=== PATIENT | female | born 1975 | race Caucasian/White ===

== ENCOUNTER 2021-07-23 06:40 | Inpatient (IN) | payer BC ==
[2021-07-23] MEDS ORDERED: Lactated Ringers 1,000 ML IV SCH (07:15)
[2021-07-23] MEDS ORDERED: Scopolamine 1.5 MG Transdermal Patch ONE (07:18)
[2021-07-23] MEDS ORDERED: Lidocaine 2% 5 ML SDV ONE (07:24)
[2021-07-23] MEDS ORDERED: Rocuronium Bromide 50 MG/5 ML Syringe ONE ×2 (07:24→09:11)
[2021-07-23] MEDS ORDERED: Dexmedetomidine 200 MCG/2 ML SDV ONE (07:24)
[2021-07-23] MEDS ORDERED: Dexamethasone 4 MG/ML 5 ML MDV ONE (07:24)
[2021-07-23] MEDS ORDERED: Propofol 200 MG/20 ML SDV ONE ×3 (07:24→09:56)
[2021-07-23] MEDS ORDERED: Esmolol 100 MG/10 ML SDV ONE (07:25)
[2021-07-23] MEDS ORDERED: fentaNYL 100 MCG/2 ML SDV ONE (07:25)
[2021-07-23] MEDS ORDERED: Water For Injection, Sterile 20 ML ONE (07:25)
[2021-07-23] MEDS ORDERED: Midazolam 1 MG/ML 2 ML SDV ONE (07:25)
[2021-07-23] MEDS ORDERED: Octyl 2-Cyanoacrylate 1 Tube ONE (07:37)
[2021-07-23] MEDS ORDERED: Fluorescein 5 ML Vial ONE (07:37)
[2021-07-23] MEDS ORDERED: Bupivacaine 0.25% 10 ML SDV ONE (07:37)
[2021-07-23] MEDS ORDERED: Methylene Blue 50 MG/10 ML Ampule ONE (07:37)
[2021-07-23] MEDS ORDERED: Metoclopramide 10 MG/2 ML SDV IVPUSH PRN (07:44)
[2021-07-23] MEDS ORDERED: Naloxone 0.4 MG/ML SDV IVPUSH PRN ×2 (07:44→11:10)
[2021-07-23] MEDS ORDERED: HYDROmorphone 1 MG/ML Syringe IVPUSH PRN (07:44)
[2021-07-23] MEDS ORDERED: Morphine 4 MG/ML VIAL IVPUSH PRN (07:44)
[2021-07-23] MEDS ORDERED: Ondansetron 4 MG/2 ML SDV IVPUSH PRN ×3 (07:44→11:10)
[2021-07-23] MEDS ORDERED: Albuterol 0.083% 2.5 MG/3 ML Neb Soln NEB PRN (07:44)
--- NOTE | 2021-07-23 07:53 | PCM.PREANE ---
Preanesthetic Assessment - Anesthesia/Transfusion/Family Hx Anesthesia History: Prior Anesthesia Without Reaction Transfusion History: No Prior Transfusion(s) - Review of Systems General: No Symptoms Pulmonary: No Symptoms Cardiovascular: No Symptoms Gastrointestinal: No Symptoms Neurological: No Symptoms Other: Reports: None - Physical Assessment NPO Status Date: 07/23/21 NPO Status Time: 00:00 Vital Signs: Last Vital Signs Temp 98.1 F 07/23/21 07:02 Pulse 66 07/23/21 07:02 Resp 14 07/23/21 07:02 BP 123/62 07/23/21 07:02 Pulse Ox 97 07/23/21 07:02 Height: 5 ft 4 in Weight: 221 lb ASA Class: 2 Mental Status: Alert & Oriented x3 Airway Class: Mallampati = 2 Dentition: Reports: Normal Dentition Thyro-Mental Finger Breadths: 3 Mouth Opening Finger Breadths: 3 ROM/Head Extension: Full Lungs: Clear to Auscultation, Normal Respiratory Effort Cardiovascular: Regular Rate, Regular Rhythm - Lab Values: Laboratory Last Values Hgb 12.9 g/dL (12.0-16.0) 07/20/21 08:25 Hct 39.0 % (36.0-46.0) 07/20/21 08:25 HCG, Qual NEGATIVE (NEG) 07/20/21 08:25 - Allergies Allergies/Adverse Reactions: Allergies Allergy/AdvReac Type Severity Reaction Status Date / Time animal dander Allergy itchy/dry Verified 07/23/21 07:20 eyes ciprofloxacin [From Cipro] Allergy swelling/ra Verified 07/23/21 07:20 sh gluten Allergy Stomach Verified 07/23/21 07:20 Upset mold Allergy itchy/dry Verified 07/23/21 07:20 eyes morphine Allergy Rash Verified 07/23/21 07:20 shellfish derived Allergy Anaphylactic Verified 07/23/21 07:20 Shock soy Allergy Hives Verified 07/23/21 07:20 venom-honey bee Allergy Anaphylactic Verified 07/23/21 07:20 Shock venom-wasp Allergy Anaphylactic Verified 07/23/21 07:20 Shock wheat Allergy Hives Verified 07/23/21 07:20 sugar beets Allergy itch/dry Uncoded 07/23/21 07:21 eyes weeds/corn/alfalfa/trees Allergy itchy/dry Uncoded 07/23/21 07:21 eyes - Acknowledgements Anesthesia Type Planned: General Anesthesia Pt an Appropriate Candidate for the Planned Anesthesia: Yes Alternatives and Risks of Anesthesia Discussed w Pt/Guardian: Yes Pt/Guardian Understands and Agrees with Anesthesia Plan: Yes PreAnesthesia Questionnaire HEENT History: Reports: Other (See Below) Other HEENT History: glasses/contacts Cardiovascular History: Reports: None Respiratory History: Reports: None Gastrointestinal History: Reports: Other (See Below) Other Gastrointestinal History: diverticulitis Genitourinary History: Reports: Renal Calculus [employer] History: Reports: Musculoskeletal History: Reports: Fracture Other Musculoskeletal History: hx fx left ulna, hx fx right wrist Neurological History: Reports: None Psychiatric History: Reports: None Endocrine/Metabolic History: Reports: Obesity/BMI 30+ Hematologic History: Reports: None Immunologic History: Reports: None Oncologic (Cancer) History: Reports: None Dermatologic History: Reports: Psoriasis - Past Surgical History Head Surgeries/Procedures: Reports: None HEENT Surgical History: Reports: None Cardiovascular Surgical History: Reports: None Respiratory Surgical History: Reports: None GI Surgical History: Reports: Cholecystectomy, Colonoscopy Female Surgical History: Reports: Other (See Below) Other Female Surgeries/Procedures: A&P repair, enterocele repair, TOVT Endocrine Surgical History: Reports: None Neurological Surgical History: Reports: None Musculoskeletal Surgical History: Reports: ORIF Other Musculoskeletal Surgeries/Procedures:: surgery to left arm x2 Oncologic Surgical History: Reports: None Dermatological Surgical History: Reports: None - SUBSTANCE USE Tobacco Use Status *Q: Never Tobacco User - HOME MEDS Home Medications: Home Meds Cholecalciferol (Vitamin D3) [Vitamin D3] 5,000 units PO DAILY 12/13/20 [History] Cranberry Fruit Extract [Cranberry] 100 mg PO DAILY 12/13/20 [History] Cyanocobalamin (Vitamin B12) [Vitamin B12] 1,000 mcg PO DAILY 12/13/20 [History] Magnesium Oxide [Magnesium] 500 mg PO DAILY 12/13/20 [History] Multivitamin 1 tab PO DAILY 12/13/20 [History] diphenhydrAMINE [Benadryl] 10 ml PO ASDIRECTED PRN 12/13/20 [History] EPINEPHrine [Epipen 2-Efrain] 1 injection SUBCUT ASDIRECTED PRN 12/14/20 [History] Progesterone,Micronized [Prometrium] 200 mg PO BEDTIME 12/14/20 [History] estradioL [Estradiol] 2.5 mg TOP BEDTIME 12/14/20 [History] - CURRENT (IN HOUSE) MEDS Current Meds: Current Medications Albuterol (Albuterol 0.083% 2.5 Mg/3 Ml Neb Soln) 2.5 mg NEB ONETIME PRN PRN Reason: Wheezing Droperidol (Droperidol 5 Mg/2 Ml Sdv) 0.625 mg IVPUSH ONETIME PRN PRN Reason: Nausea/Vomiting Fentanyl (Fentanyl 100 Mcg/2 Ml Sdv) 50 mcg IVPUSH Q5M PRN PRN Reason: Pain (mild 1-3) Hydromorphone HCl (Hydromorphone 1 Mg/Ml Syringe) 1 mg IVPUSH Q10M PRN PRN Reason: Pain (moderate 4-6) Lactated Ringer's (Ringers, Lactated) 1,000 mls @ 125 mls/hr IV ASDIRECTED JONY Last Admin: 07/23/21 07:28 Dose: 125 mls/hr Documented by: Metoclopramide HCl (Metoclopramide 10 Mg/2 Ml Sdv) 10 mg IVPUSH ONETIME PRN PRN Reason: Nausea/Vomiting Morphine Sulfate (Morphine 4 Mg/Ml Vial) 2 mg IVPUSH Q10M PRN PRN Reason: Pain (severe 7-10) Naloxone HCl (Naloxone 0.4 Mg/Ml Sdv) 0.1 mg IVPUSH ASDIRECTED PRN PRN Reason: Respiratory Depression Ondansetron HCl (Ondansetron 4 Mg/2 Ml Sdv) 4 mg IVPUSH ONETIME PRN PRN Reason: Nausea/Vomiting Discontinued Medications Bupivacaine HCl (Bupivacaine 0.25% 10 Ml Sdv) Confirm Administered Dose 20 ml .ROUTE .STK-MED ONE Stop: 07/23/21 07:38 Dexamethasone (Dexamethasone 4 Mg/Ml 5 Ml Mdv) Confirm Administered Dose 20 mg .ROUTE .STK-MED ONE Stop: 07/23/21 07:25 Dexmedetomidine HCl (Dexmedetomidine 200 Mcg/2 Ml Sdv) Confirm Administered Dose 200 mcg .ROUTE .STK-MED ONE Stop: 07/23/21 07:25 Esmolol HCl (Esmolol 100 Mg/10 Ml Sdv) Confirm Administered Dose 100 mg .ROUTE .STK-MED ONE Stop: 07/23/21 07:26 Fentanyl (Fentanyl 100 Mcg/2 Ml Sdv) Confirm Administered Dose 100 mcg .ROUTE .STK-MED ONE Stop: 07/23/21 07:26 Fluorescein Sodium (Fluorescein 5 Ml Vial) Confirm Administered Dose 5 ml .ROUTE .STK-MED ONE Stop: 07/23/21 07:38 Sterile Water (Sterile Water For Injection) Confirm Administered Dose 20 mls @ as directed .ROUTE .ST-MED ONE Stop: 07/23/21 07:26 Lidocaine (Lidocaine 2% 5 Ml Sdv) Confirm Administered Dose 5 ml .ROUTE .STK-MED ONE Stop: 07/23/21 07:25 Methylene Blue (Methylene Blue 50 Mg/10 Ml Ampule) Confirm Administered Dose 50 mg .ROUTE .ST-MED ONE Stop: 07/23/21 07:38 Midazolam HCl (Midazolam 1 Mg/Ml 2 Ml Sdv) Confirm Administered Dose 2 mg .ROUTE .ST-MED ONE Stop: 07/23/21 07:26 Octyl Cyanoacrylate (Octyl 2-Cyanoacrylate 1 Tube) Confirm Administered Dose 1 applic .ROUTE .ST-MED ONE Stop: 07/23/21 07:38 Propofol (Propofol 200 Mg/20 Ml Sdv) Confirm Administered Dose 200 mg .ROUTE .ST-MED ONE Stop: 07/23/21 07:25 Rocuronium Fernley (Rocuronium Fernley 50 Mg/5 Ml Syringe) Confirm Administered Dose 50 mg .ROUTE .ST-MED ONE Stop: 07/23/21 07:25 Scopolamine (Scopolamine 1.5 Mg Transdermal Patch) Confirm Administered Dose 1.5 mg .ROUTE .ST-MED ONE Stop: 07/23/21 07:19 Last Admin: 07/23/21 07:25 Dose: 1.5 mg Documented by:
--- NOTE | 2021-07-23 08:50 | PCM.OPNOTE ---
- General Post-Op/Procedure Note Date of Surgery/Procedure: 07/23/21 Operative Procedure(s): Exploration of the abdomen and closure of retroperitoneum Pre Op Diagnosis: Per Dr. Christie Post-Op Diagnosis: Intraoperative bleeding. Retroperitoneal tear. Anesthesia Technique: General ET Tube (ASA II) Primary Surgeon: Jad Correa Condition: Good Free Text/Narrative:: I was called for intraoperative consultation. At the time of the laparoscopic assisted vaginal hysterectomy. The consult was called for bleeding after the Veress needle had been inserted. Laparotomy incision had already been made by Dr. Christie. No significant amount of blood was noted in the pelvis at the time, although there was a rent in the retroperitoneum. This was repaired with interrupted 3-0 Vicryl suture. No other source for bleeding was noted. I completed my portion of the procedure, closing the retroperitoneum and then turned the case back over to Dr. Christie & Dr. Ludwig. They will dictate the remainder of the operative procedure.
[2021-07-23] MEDS ORDERED: Furosemide 40 MG/4 ML VIAL ONE (09:12)
[2021-07-23] MEDS ORDERED: ePHEDrine 50 MG/ML SDV ONE ×3 (09:14→09:16)
[2021-07-23] MEDS ORDERED: Sugammadex Sodium 200 MG/2 ML VIAL ONE (09:23)
[2021-07-23] MEDS ORDERED: Ondansetron 4 MG/2 ML SDV ONE (09:23)
[2021-07-23] MEDS ORDERED: Ketorolac 30 MG/ML SDV ONE (09:23)
--- NOTE | 2021-07-23 10:56 | PCM48HPAN ---
Post Anesthesia Note - EVALUATION WITHIN 48HRS OF ANESTHETIC Vital Signs in Normal Range: Yes Patient Participated in Evaluation: Yes Respiratory Function Stable: Yes Airway Patent: Yes Cardiovascular Function Stable: Yes Hydration Status Stable: Yes Pain Control Satisfactory: Yes Nausea and Vomiting Control Satisfactory: Yes Mental Status Recovered: Yes Vital Signs: Last Vital Signs Temp 98.1 F 07/23/21 07:02 Pulse 66 07/23/21 07:02 Resp 14 07/23/21 07:02 BP 123/62 07/23/21 07:02 Pulse Ox 97 07/23/21 07:02
--- NOTE | 2021-07-23 10:56 | PCM.POSTAN ---
POST ANESTHESIA ASSESSMENT - MENTAL STATUS Mental Status: Alert, Oriented - VITAL SIGNS Vital Signs: Last Vital Signs Temp 98.1 F 07/23/21 07:02 Pulse 66 07/23/21 07:02 Resp 14 07/23/21 07:02 BP 123/62 07/23/21 07:02 Pulse Ox 97 07/23/21 07:02 - RESPIRATORY Respiratory Status: Respiratory Rate WNL, Airway Patent, O2 Saturation Stable - CARDIOVASCULAR CV Status: Pulse Rate WNL, Blood Pressure Stable - GASTROINTESTINAL GI Status: No Symptoms - POST OP HYDRATION Hydration Status: Adequate & Stable
--- NOTE | 2021-07-23 10:59 | PCM.OPNOTE ---
- General Post-Op/Procedure Note Date of Surgery/Procedure: 07/23/21 Operative Procedure(s): total abdominal hysterectomy with bilateral salpingoophorectomy, lysis of adhesions and cystoscopy, intraoperative general surgery consultation. Findings: Normal appearing uterus, bilateral ovaries adherent to the medial leaf of the broad ligament, posterior peritoneal defect approximately 5 cm in length. Cystoscopy showed no trauma to the bladder mucosa, copious flow of urine from bilateral ureteral orifices. Pre Op Diagnosis: postmenopausal bleeding Post-Op Diagnosis: Same Anesthesia Technique: General ET Tube Primary Surgeon: Myesha Christie Secondary Surgeon: Jane Ludwig Anesthesia Provider: Stuart Melendez Pathology: Uterus and bilateral fallopian tubes and ovaries. Fluid Replacement, Intraop: 1,900 EBL in mLs: 300 Complications: None known Condition: Good
[2021-07-23] MEDS ORDERED: Acetaminophen/oxyCODONE 325-5 MG Tab PO PRN ×2 (11:03)
[2021-07-23] MEDS ORDERED: Promethazine 25 MG/ML SDV IM PRN (11:03)
[2021-07-23] MEDS: fentaNYL 100 MCG/2 ML SDV IVPUSH PRN ×2 (11:06→11:15)
[2021-07-23] MEDS ORDERED: diphenhydrAMINE 25 MG Cap PO PRN (11:10)
[2021-07-23] MEDS ORDERED: HYDROmorphone/Normal Saline 10 MG/50 ML PCA IV PRN (11:10)
[2021-07-23] MEDS ORDERED: diphenhydrAMINE 50 MG/ML SDV IVPUSH PRN (11:10)
--- NOTE | 2021-07-23 11:21 | OR ---
SURGEON: Jad Correa M.D. DATE OF PROCEDURE: 07/23/2021 Intraoperative consultation and operative note. OPERATION PERFORMED: Exploration of abdomen and closure of retroperitoneal defect. DESCRIPTION OF PROCEDURE AND CONSULTATION: I was called to the operating room by Dr. Christie for intraoperative consultation for bleeding after the Veress needle had been inserted. Laparotomy incision had already been made by Dr. Christie for further evaluation of the bleeding. Per Dr. Christie, there was no significant bleeding when the laparotomy incision was made; however, there was noted to be a retroperitoneal tear, and I was asked to evaluate this. I did scrub in for surgery, and exploration did reveal a tear in the retroperitoneum with exposed iliac artery, although no significant bleeding was noted of either a venous or arterial etiology. The retroperitoneal tear did extend a little bit. It was felt that we should not explore this too much further to create further injury. Therefore, the retroperitoneum was loosely reapproximated with interrupted 3-0 Vicryl. This was done to try and prevent a bowel obstruction or herniation. With no further bleeding noted, I did scrub out and return the case to the care of Dr. Christie and Dr. Ludwig who will dictate their portion of the procedure. [id number] / [id number] /[id number]
[2021-07-23] MEDS: Lactated Ringers 1,000 ML IV SCH ×3 (12:45→23:31)
--- NOTE | 2021-07-23 16:04 | PCM.SURGPN ---
- General Info Date of Service: 07/23/21 Date of Surgery/Procedure: 07/23/21 POD#: 0 Post-Op Diagnosis: postmenopausal bleeding Functional Status: Reports: Pain Controlled (feeling gas pain only), Tolerating Diet. Denies: Urinating (catheter in place) - Review of Systems General: Reports: No Symptoms HEENT: Reports: No Symptoms Pulmonary: Reports: No Symptoms Cardiovascular: Reports: No Symptoms Gastrointestinal: Reports: No Symptoms Genitourinary: Reports: No Symptoms Musculoskeletal: Reports: No Symptoms Skin: Reports: No Symptoms Neurological: Reports: No Symptoms Psychiatric: Reports: No Symptoms - Patient Data Vitals - Most Recent: Last Vital Signs Temp 36.3 C 07/23/21 14:45 Pulse 75 07/23/21 14:45 Resp 18 07/23/21 14:45 BP 125/64 07/23/21 14:45 Pulse Ox 98 07/23/21 14:45 Weight - Most Recent: 100.244 kg I&O - Last 24 Hours: Intake & Output 07/23/21 07/23/21 07/23/21 06:59 14:59 22:59 Intake Total 4050 Output Total 650 Balance 3400 Lab Results Last 24 Hrs: Laboratory Results - last 24 hr 07/23/21 07/23/21 Range/Units 07:14 14:47 WBC 21.58 H (4.0-11.0) K/uL RBC 4.50 (4.30-5.90) M/uL Hgb 12.9 (12.0-16.0) g/dL Hct 39.0 (36.0-46.0) % MCV 86.7 (80.0-98.0) fL MCH 28.7 (27.0-32.0) pg MCHC 33.1 (31.0-37.0) g/dL RDW Std Deviation 45.7 (28.0-62.0) fl RDW Coeff of Rocky 14 (11.0-15.0) % Plt Count 361 (150-400) K/uL MPV 9.20 (7.40-12.00) fL Nucleated RBC % 0.0 /100WBC Nucleated RBCs # 0 K/uL Blood Type A NEGATIVE Antibody Screen NEGATIVE Med Orders - Current: Current Medications Diphenhydramine HCl (Diphenhydramine 50 Mg/Ml Sdv) 25 mg IVPUSH Q6H PRN PRN Reason: Itching Diphenhydramine HCl (Diphenhydramine 25 Mg Cap) 25 mg PO Q6H PRN PRN Reason: Itching Hydromorphone HCl (Hydromorphone/Normal Saline 10 Mg/50 Ml Hub Bander) 0 mg IV ASDIRECTED PRN; Protocol PRN Reason: Abdominal Pain Last Admin: 07/23/21 13:00 Dose: 10 mg Documented by: Lactated Ringer's (Ringers, Lactated) 1,000 mls @ 125 mls/hr IV ASDIRECTED JONY Last Admin: 07/23/21 12:45 Dose: 125 mls/hr Documented by: Naloxone HCl (Naloxone 0.4 Mg/Ml Sdv) 0.4 mg IVPUSH Q3M PRN PRN Reason: Respiratory Depression Ondansetron HCl (Ondansetron 4 Mg/2 Ml Sdv) 4 mg IVPUSH Q6H PRN PRN Reason: Nausea/Vomiting Ondansetron HCl (Ondansetron 4 Mg/2 Ml Sdv) 4 mg IVPUSH Q6H PRN PRN Reason: Nausea/Vomiting Oxycodone/Acetaminophen (Acetaminophen/Oxycodone 325-5 Mg Tab) 1 tab PO Q4H PRN PRN Reason: Pain (moderate 4-6) Oxycodone/Acetaminophen (Acetaminophen/Oxycodone 325-5 Mg Tab) 2 tab PO Q4H PRN PRN Reason: Pain (moderate 4-6) Estradiol 42.5 Gm (Cream.Appl) 2.5 each TOP BEDTIME JONY Promethazine HCl (Promethazine 25 Mg/Ml Sdv) 25 mg IM Q6H PRN PRN Reason: Nausea/Vomiting Simethicone (Simethicone 80 Mg Tab.Chew) 80 mg PO Q4H PRN PRN Reason: Abdominal Pain Discontinued Medications Albuterol (Albuterol 0.083% 2.5 Mg/3 Ml Neb Soln) 2.5 mg NEB ONETIME PRN PRN Reason: Wheezing Bupivacaine HCl (Bupivacaine 0.25% 10 Ml Sdv) Confirm Administered Dose 20 ml .ROUTE .STK-MED ONE Stop: 07/23/21 07:38 Dexamethasone (Dexamethasone 4 Mg/Ml 5 Ml Mdv) Confirm Administered Dose 20 mg .ROUTE .STK-MED ONE Stop: 07/23/21 07:25 Dexmedetomidine HCl (Dexmedetomidine 200 Mcg/2 Ml Sdv) Confirm Administered Dose 200 mcg .ROUTE .STK-MED ONE Stop: 07/23/21 07:25 Droperidol (Droperidol 5 Mg/2 Ml Sdv) 0.625 mg IVPUSH ONETIME PRN PRN Reason: Nausea/Vomiting Ephedrine Sulfate (Ephedrine 50 Mg/Ml Sdv) Confirm Administered Dose 50 mg .ROUTE .STK-MED ONE Stop: 07/23/21 09:15 Ephedrine Sulfate (Ephedrine 50 Mg/Ml Sdv) Confirm Administered Dose 50 mg .ROUTE .STK-MED ONE Stop: 07/23/21 09:15 Ephedrine Sulfate (Ephedrine 50 Mg/Ml Sdv) Confirm Administered Dose 50 mg .ROUTE .STK-MED ONE Stop: 07/23/21 09:17 Esmolol HCl (Esmolol 100 Mg/10 Ml Sdv) Confirm Administered Dose 100 mg .ROUTE .STK-MED ONE Stop: 07/23/21 07:26 Fentanyl (Fentanyl 100 Mcg/2 Ml Sdv) Confirm Administered Dose 100 mcg .ROUTE .STK-MED ONE Stop: 07/23/21 07:26 Fentanyl (Fentanyl 100 Mcg/2 Ml Sdv) 50 mcg IVPUSH Q5M PRN PRN Reason: Pain (mild 1-3) Last Admin: 07/23/21 11:15 Dose: 50 mcg Documented by: Fluorescein Sodium (Fluorescein 5 Ml Vial) Confirm Administered Dose 5 ml .ROUTE .STK-MED ONE Stop: 07/23/21 07:38 Furosemide (Furosemide 40 Mg/4 Ml Vial) Confirm Administered Dose 40 mg .ROUTE .STK-MED ONE Stop: 07/23/21 09:13 Hydromorphone HCl (Hydromorphone 1 Mg/Ml Syringe) 1 mg IVPUSH Q10M PRN PRN Reason: Pain (moderate 4-6) Lactated Ringer's (Ringers, Lactated) 1,000 mls @ 125 mls/hr IV ASDIRECTED JONY Last Admin: 07/23/21 07:28 Dose: 125 mls/hr Documented by: Sterile Water (Sterile Water For Injection) Confirm Administered Dose 20 mls @ as directed .ROUTE .STK-MED ONE Stop: 07/23/21 07:26 Cefazolin Sodium/Dextrose (Ancef) Confirm Administered Dose 50 mls @ as directed .ROUTE .STK-MED ONE Stop: 07/23/21 08:09 Acetaminophen (Ofirmev 1000 Mg/100 Ml) Confirm Administered Dose 100 mls @ as directed .ROUTE .STK-MED ONE Stop: 07/23/21 09:35 Ketorolac Tromethamine (Ketorolac 30 Mg/Ml Sdv) Confirm Administered Dose 0 mg .ROUTE .STK-MED ONE Stop: 07/23/21 09:24 Lidocaine (Lidocaine 2% 5 Ml Sdv) Confirm Administered Dose 5 ml .ROUTE .STK-MED ONE Stop: 07/23/21 07:25 Methylene Blue (Methylene Blue 50 Mg/10 Ml Ampule) Confirm Administered Dose 50 mg .ROUTE .STK-MED ONE Stop: 07/23/21 07:38 Metoclopramide HCl (Metoclopramide 10 Mg/2 Ml Sdv) 10 mg IVPUSH ONETIME PRN PRN Reason: Nausea/Vomiting Midazolam HCl (Midazolam 1 Mg/Ml 2 Ml Sdv) Confirm Administered Dose 2 mg .ROUTE .STK-MED ONE Stop: 07/23/21 07:26 Morphine Sulfate (Morphine 4 Mg/Ml Vial) 2 mg IVPUSH Q10M PRN PRN Reason: Pain (severe 7-10) Naloxone HCl (Naloxone 0.4 Mg/Ml Sdv) 0.1 mg IVPUSH ASDIRECTED PRN PRN Reason: Respiratory Depression Octyl Cyanoacrylate (Octyl 2-Cyanoacrylate 1 Tube) Confirm Administered Dose 1 applic .ROUTE .STK-MED ONE Stop: 07/23/21 07:38 Ondansetron HCl (Ondansetron 4 Mg/2 Ml Sdv) 4 mg IVPUSH ONETIME PRN PRN Reason: Nausea/Vomiting Ondansetron HCl (Ondansetron 4 Mg/2 Ml Sdv) Confirm Administered Dose 4 mg .ROUTE .STK-MED ONE Stop: 07/23/21 09:24 Propofol (Propofol 200 Mg/20 Ml Sdv) Confirm Administered Dose 200 mg .ROUTE .STK-MED ONE Stop: 07/23/21 07:25 Propofol (Propofol 200 Mg/20 Ml Sdv) Confirm Administered Dose 200 mg .ROUTE .STK-MED ONE Stop: 07/23/21 08:40 Propofol (Propofol 200 Mg/20 Ml Sdv) Confirm Administered Dose 200 mg .ROUTE .STK-MED ONE Stop: 07/23/21 09:57 Rocuronium [place] (Rocuronium [place] 50 Mg/5 Ml Syringe) Confirm Administered Dose 50 mg .ROUTE .STK-MED ONE Stop: 07/23/21 07:25 Rocuronium [place] (Rocuronium [place] 50 Mg/5 Ml Syringe) Confirm Administered Dose 50 mg .ROUTE .STK-MED ONE Stop: 07/23/21 09:12 Scopolamine (Scopolamine 1.5 Mg Transdermal Patch) Confirm Administered Dose 1.5 mg .ROUTE .STK-MED ONE Stop: 07/23/21 07:19 Last Admin: 07/23/21 07:25 Dose: 1.5 mg Documented by: Sugammadex Sodium (Sugammadex Sodium 200 Mg/2 Ml Vial) Confirm Administered Dose 200 mg .ROUTE .STK-MED ONE Stop: 07/23/21 09:24 - Exam Wound/Incisions: Dressing Dry and Intact General: Alert, Oriented Lungs: Normal Respiratory Effort GI/Abdominal Exam: Soft, Non-Tender Sepsis Event Note - Evaluation Sepsis Screening Result: No Definite Risk - Focused Exam Vital Signs: Vital Signs Temp Pulse Resp BP Pulse Ox Pulse Ox 07/23/21 14:45 36.3 C 75 18 125/64 98 07/23/21 13:45 36.1 C 71 20 123/76 98 07/23/21 13:15 36.1 C 70 20 120/72 99 07/23/21 12:45 36.1 C 73 18 119/66 99 07/23/21 12:30 35.9 C L 69 20 119/64 100 07/23/21 12:15 36.1 C 70 16 121/68 100 07/23/21 12:00 36.6 C 72 16 116/66 99 07/23/21 11:45 35.6 C L 72 14 111/61 99 99 07/23/21 11:30 75 13 109/63 96 07/23/21 11:25 73 16 115/66 95 07/23/21 11:20 72 18 108/66 95 07/23/21 11:15 73 15 112/64 96 07/23/21 11:10 71 13 113/67 95 07/23/21 11:05 69 11 L 113/69 98 07/23/21 11:00 74 17 113/71 99 07/23/21 10:55 75 14 113/70 98 07/23/21 10:50 36 C L 75 15 110/71 97 07/23/21 07:02 36.7 C 66 14 123/62 97 - Problem List & Annotations (1) Postmenopausal bleeding SNOMED Code(s): 75983866 Code(s): N95.0 - POSTMENOPAUSAL BLEEDING Status: Acute Current Visit: Yes - Problem List Review Problem List Initiated/Reviewed/Updated: Yes - My Orders Last 24 Hours: Active Orders 24 hr Category Date Time Status Patient Status [ADT] Routine ADT 07/23/21 11:03 Active Antiembolic Devices [RC] PER UNIT ROUTINE Care 07/23/21 11:04 Active Communication Order [RC] PER UNIT ROUTINE Care 07/23/21 11:11 Active Notify Provider Intake and Out [RC] ASDIRECTED Care 07/23/21 11:03 Active Notify Provider Vital Signs [RC] ASDIRECTED Care 07/23/21 11:03 Active Oxygen Therapy [RC] ASDIRECTED Care 07/23/21 11:03 Active COORDINATE MEASURING MACHINE TECHNICIAN Record [RC] Q4H Care 07/23/21 11:11 Active Pulse Oximetry [RC] PER UNIT ROUTINE Care 07/23/21 11:05 Active RT Incentive Spirometry [RC] Q2HWA Care 07/23/21 11:03 Active Up With Assistance [RC] PER UNIT ROUTINE Care 07/23/21 11:03 Active Up ad Jade [RC] PER UNIT ROUTINE Care 07/23/21 11:03 Active Urinary Catheter Removal [RC] Per Unit Routine Care 07/23/21 11:03 Active Vital Signs [RC] PER UNIT ROUTINE Care 07/23/21 11:03 Active Advance Diet Instructions [DIET] Diet 07/23/21 Lunch Active BASIC METABOLIC PANEL,BMP [CHEM] AM Lab 07/24/21 05:11 Ordered CBC WITH AUTO DIFF [HEME] AM Lab 07/24/21 05:11 Ordered Acetaminophen/oxyCODONE [Percocet 325-5 MG] Med 07/23/21 11:03 Active 1 tab PO Q4H PRN Acetaminophen/oxyCODONE [Percocet 325-5 MG] Med 07/23/21 11:03 Active 2 tab PO Q4H PRN HYDROmorphone/Normal Saline [Dilaudid COORDINATE MEASURING MACHINE TECHNICIAN 10 MG in NS Med 07/23/21 11:10 Active 50 ML] 0 mg IV ASDIRECTED PRN Ketorolac [Toradol] Med 07/23/21 16:00 Ordered 30 mg IVPUSH Q6H Lactated Ringers [Ringers, Lactated] 1,000 ml Med 07/23/21 11:15 Active IV ASDIRECTED Naloxone [Narcan] Med 07/23/21 11:10 Active 0.4 mg IVPUSH Q3M PRN Ondansetron [Zofran] Med 07/23/21 11:03 Active 4 mg IVPUSH Q6H PRN Ondansetron [Zofran] Med 07/23/21 11:10 Active 4 mg IVPUSH Q6H PRN Patient's Own Medication [Ptom] Med 07/23/21 21:00 Active 2.5 each TOP BEDTIME Promethazine [Phenergan] Med 07/23/21 11:03 Active 25 mg IM Q6H PRN Simethicone Med 07/23/21 15:58 Ordered 80 mg PO Q4H PRN diphenhydrAMINE [Benadryl] Med 07/23/21 11:10 Active 25 mg IVPUSH Q6H PRN diphenhydrAMINE [Benadryl] Med 07/23/21 11:10 Active 25 mg PO Q6H PRN Abdominal Binder [OM.PC] Per Unit Routine Oth 07/23/21 11:05 Ordered May Take Own Home Medications [OM.PC] Per Unit Routine Oth 07/23/21 11:05 Ordered Peripheral IV Discontinue [OM.PC] Routine Oth 07/23/21 11:03 Ordered Pulse Oximetry Continuous Monitoring [OM.PC] Routine Oth 07/23/21 07:44 Ordered Pulse Oximetry Continuous Monitoring [OM.PC] Routine Oth 07/23/21 11:11 Ordered Sequential Compression Device [OM.PC] Per Unit Routine Oth 07/23/21 11:03 Ordered Resuscitation Status Routine Resus Stat 07/23/21 11:03 Ordered Medication Orders Diphenhydramine HCl (Diphenhydramine 50 Mg/Ml Sdv) 25 mg IVPUSH Q6H PRN PRN Reason: Itching Diphenhydramine HCl (Diphenhydramine 25 Mg Cap) 25 mg PO Q6H PRN PRN Reason: Itching Hydromorphone HCl (Hydromorphone/Normal Saline 10 Mg/50 Ml Hub Bander) 0 mg IV ASDIRECTED PRN; Protocol PRN Reason: Abdominal Pain Last Admin: 07/23/21 13:00 Dose: 10 mg Documented by: JUAN LUIS Lactated Ringer's (Ringers, Lactated) 1,000 mls @ 125 mls/hr IV ASDIRECTED JONY Last Admin: 07/23/21 12:45 Dose: 125 mls/hr Documented by: JUAN LUIS Naloxone HCl (Naloxone 0.4 Mg/Ml Sdv) 0.4 mg IVPUSH Q3M PRN PRN Reason: Respiratory Depression Ondansetron HCl (Ondansetron 4 Mg/2 Ml Sdv) 4 mg IVPUSH Q6H PRN PRN Reason: Nausea/Vomiting Ondansetron HCl (Ondansetron 4 Mg/2 Ml Sdv) 4 mg IVPUSH Q6H PRN PRN Reason: Nausea/Vomiting Oxycodone/Acetaminophen (Acetaminophen/Oxycodone 325-5 Mg Tab) 1 tab PO Q4H PRN PRN Reason: Pain (moderate 4-6) Oxycodone/Acetaminophen (Acetaminophen/Oxycodone 325-5 Mg Tab) 2 tab PO Q4H PRN PRN Reason: Pain (moderate 4-6) Estradiol 42.5 Gm (Cream.Appl) 2.5 each TOP BEDTIME JONY Promethazine HCl (Promethazine 25 Mg/Ml Sdv) 25 mg IM Q6H PRN PRN Reason: Nausea/Vomiting Simethicone (Simethicone 80 Mg Tab.Chew) 80 mg PO Q4H PRN PRN Reason: Abdominal Pain - Assessment Assessment (Free Text/Narrative):: POD0 after CONCETTA/BSO, for postmenopausal bleeding, with findings of pelvic adhesions, open approach due to blood noted on placement of Veress needle. - Plan Plan (Free Text/Narrative):: Reviewed operative findings, and reason for pfannenstiel incision. Start GasX due to gas pain. Hemoglobin is stable relative to preop, therefore will start Ketorolac. Continue Dilaudid COORDINATE MEASURING MACHINE TECHNICIAN. In am will start oral pain medications, catheter out and encourage ambulation. Continue SCD for DVT prophylaxis at this time.
[2021-07-23] MEDS: Ketorolac 30 MG/ML SDV IVPUSH SCH ×2 (17:30→23:29)
--- NOTE | 2021-07-23 19:20 | OR ---
SURGEON: Myesha Christie M.D. DATE OF PROCEDURE: 07/23/2021 PREOPERATIVE DIAGNOSIS: Postmenopausal bleeding. POSTOPERATIVE DIAGNOSIS: Postmenopausal bleeding. PROCEDURES: Total abdominal hysterectomy, bilateral salpingo-oophorectomy, cystoscopy, intraoperative General Surgery consultation. PRIMARY SURGEON: Myesha Christie M.D. PRESIDENT EDUCATIONAL INSTITUTION: [facility] MD. CONSULTING PHYSICIAN: Jad Correa M.D. ANESTHESIA: General endotracheal. ESTIMATED BLOOD LOSS: 300 mL. FLUIDS: 1900 mL crystalloid. FINDINGS: Bilateral ovaries were adherent to medial leaf of the broad ligament. The tip of the appendix was adherent to the pelvic peritoneum. There was a defect in the posterior peritoneum measuring approximately 5 cm in length. See Dr. Correa's dictation. DISPOSITION: Stable to Recovery. PATHOLOGY SPECIMEN: Uterus, tubes, and ovaries. COMPLICATIONS: None known. BRIEF HISTORY: This is a 46-year-old female. She presents with a complaint of postmenopausal bleeding. She is a patient of Dr. Burrows's. Plan was to proceed with hysterectomy after there was no etiology for her postmenopausal bleeding identified including saline ultrasound, endometrial biopsy, and treatment with hormonal therapy. While she is on hormonal therapy, she does have resolution of her bleeding, but as soon as she stops, it recurs. She has documented menopause based on laboratory studies and throughout the year, she has had a complicated recovery from a severe left radial fracture and this delayed the hysterectomy, and she now presents for surgical treatment of the postmenopausal bleeding by hysterectomy. She desires removal of bilateral tubes and ovaries for prophylaxis. She has been thoroughly counseled regarding risks and benefits of removal versus retaining the tubes and ovaries. However, she strongly does not desire any future surgeries, and therefore desires to have them removed. Additionally, she does have a history of a TOVT, anterior and posterior colporrhaphy, and enterocele repair in the remote past and is concerned that these not be disrupted at the time of surgery. She is therefore consented for a laparoscopically assisted vaginal hysterectomy, bilateral salpingo-oophorectomy, and cystoscopy with possible total abdominal hysterectomy with risks discussed including bleeding; infection; injury to bowel, bladder, blood vessels, ureters, or other organs; risk of thromboembolic event; risk of anesthesia. Understanding all these risks, she does desire to proceed. DESCRIPTION OF PROCEDURE: With the patient in dorsal lithotomy position, under adequate general endotracheal anesthesia, the abdomen was prepped with chlorhexidine. The perineum and vagina were prepped with Zephiran due to her allergy to shellfish. She had SCDs in place. She received 2 g of Ancef IV and an appropriate time-out was held. The bimanual examination was performed with a small mobile uterus. The mid urethral sling was appropriately positioned. There was good support of the pelvis and the speculum was placed in the vagina. The cervix was grasped with an Allis clamp and the cervix was slightly dilated to an 8 mm Hegar dilator. The uterus sounded to 8 cm. The ZArrayComm uterine manipulator was placed. The Gonzalez had been backfilled with 30 mL of indigo carmine and monorail crane operator's gloves were changed. Attention was then turned abdominally where 3 mL of 0.25% Marcaine were injected inferior to the umbilicus. A vertical incision was made with a scalpel. The anterior abdominal wall was elevated. Veress needle was inserted. The short Veress needle, I did not feel entered the peritoneal cavity. Therefore, a long Veress needle was utilized. I did place a long Veress needle, however, upon evaluation for intraperitoneal placement with withdrawal with a syringe, there was noted to be blood. Therefore, this approach was discontinued due to concern regarding withdrawing blood from the Veress needle and I rapidly proceeded with a transverse curvilinear incision 2 cm cephalad from the pubic symphysis. The incision was carried through the subcutaneous tissue to the fascia which was scored transversely in the midline. The fascial incision was extended laterally. Using sharp and blunt dissection, a finger was used to enter the peritoneal cavity. The Catarino O retractor was placed. There was a small amount of blood noted intraperitoneally which may or may not have come from the anterior abdominal wall incision. At this point, I had requested a type and cross, 2 units, and also requested General Surgery consultation. Dr. Correa was very quickly available. The bowel had been packed. There was a defect in the posterior peritoneum over the sacral area measuring approximately 5 cm in length toward the right of midline. He carefully inspected and there was no evidence of any retroperitoneal hematoma. There was no evidence of any injury to the vasculature and he felt that the blood may have come from omental or other preperitoneal source and he closed the defect in the posterior peritoneum and did scrub out. Following this, I noted that the appendix was adherent to the pelvic peritoneum and I did demonstrate this to him, as he was already scrubbed out and he did recommend lysing this adhesion which I did. The appendix otherwise appeared normal. This being completed, I did proceed with the hysterectomy in an abdominal approach. The ZUMI uterine manipulator was removed. The bladder was released. The Pean clamps were utilized to grasp the uterine cornua on the right and the left. The round ligament was elevated and ligated, and the broad ligament was entered using electrocautery. The anterior leaf of the broad ligament was opened anteriorly down to the bladder reflection and fingers were utilized to demonstrate the ureter which was very deep in the pelvis in the medial leaf of the broad ligament. The bilateral ovaries were adherent to the medial leaf of the broad ligament and using blunt dissection with manual dissection, I was able to free both ovaries. The infundibulopelvic ligament was then isolated with a window in the medial leaf of the broad ligament immediately beneath the infundibulopelvic ligament which was then doubly clamped, cut, and ligated using a free tie followed by a Ancelmo ligature of 2-0 Polysorb. This was repeated on the opposite side. The uterine vessels were then skeletonized and isolated and doubly clamped, cut, and ligated using a simple ligature followed by a Ancelmo ligature of 2-0 Polysorb. A straight clamp was utilized to clamp immediately adjacent to upper portion of the cervix on the right and the left. A pedicle was developed using a 10-blade scalpel and a ligature was placed using a Ancelmo ligature of 0 Polysorb. An additional pedicle was taken in a similar fashion to get near the uterosacral ligament. A finger was used to palpate anteriorly below the level of the cervix. The bladder was easily dissected below the level of the cervix. The uterosacral ligaments were then clamped with a curved Z clamp and cut and ligated using retained suture of 0 Polysorb in a Ancelmo fashion. A scalpel was used to enter the anterior cuff and the cervix was then circumscribed using Sadie scissors. The cuff was grasped with Jesus clamps. The uterus, bilateral tubes and ovaries were then delivered for pathology specimen. The retained uterosacral ligament ligatures were then ligated to the vaginal apices bilaterally. The vaginal cuff was closed with a running lock suture of 0 Polysorb followed by an imbricating layer of 0 Polysorb. At this point, the pelvis was copiously irrigated with sterile water. There were no areas of bleeding except for a small amount of bleeding along the medial leaf of the broad ligament on the right which was carefully isolated and cauterized. There was no bleeding from the retroperitoneum. The cystoscopy was then performed after all of the packing tapes had been removed, and Catarino retractor was removed. IV fluorescein and Lasix had been given. There was excellent visualization of the bladder. There was no evidence of any bladder trauma and there was copious flow of bright green urine from bilateral ureteral orifices. This being completed, the catheter was replaced. The speculum was placed in the vagina. The vaginal cuff was inspected. The right angle of the cuff had a small amount of bleeding that was controlled with a [id number] suture. Following this, the cuff was hemostatic. Lap Maker's gloves were again changed. Attention was turned abdominally, where the Catarino O retractor was replaced. The bowel was carefully packed. The retroperitoneal area was carefully inspected and the entire pelvis was irrigated and was hemostatic. The hemostasis being apparent, the Catarino O was removed. The bowel was again retracted upward to carefully inspect for any evidence of a retroperitoneal hematoma and there was none. Therefore, all the packing tapes were removed. Preliminary count was correct. The rectus muscle and peritoneum were loosely approximated in midline using a running mattress suture of 0 Polysorb. The posterior aspect of the fascia was inspected and was hemostatic. The fascial incision was closed with a running suture of 0 Polysorb. The deep subcutaneous tissue was irrigated and any areas of bleeding that were noted were cauterized. The Graciela fascia was then closed using a running suture of 2-0 plain, and the skin was closed with a running subcuticular suture of 3-0 Monocryl followed by Dermabond. The infraumbilical incision was also closed with a subcuticular suture of 3-0 Monocryl. Final sponge, needle, and instrument counts were reported as correct. There were no known complications. The patient was transferred to Recovery in good condition. ALEC / YINKA /[id number] [facility]ERSITY HOSPITALBritni
[2021-07-23] MEDS: ESTRADIOL APPL TOP SCH (21:00)
[2021-07-24] MEDS: Ketorolac 30 MG/ML SDV IVPUSH SCH ×4 (05:27→22:18)
[2021-07-24 07:01] LABS: BLOOD UREA NITROGEN,BUN 9 mg/dL (7.0-18.0); CARBON DIOXIDE,CO2 26.5 mmol/L (21.0-32.0); CHLORIDE,CL 104 mmol/L (98-107); GLUCOSE RANDOM 120 mg/dL (74-106); POTASSIUM,K 4.5 mmol/L (3.5-5.1); SODIUM,NA 139 mmol/L (136-145)
--- NOTE | 2021-07-24 09:08 | PCM.SURGPN ---
- General Info Date of Service: 07/24/21 Date of Surgery/Procedure: 07/23/21 POD#: 1 Post-Op Diagnosis: postmenopausal bleeding Functional Status: Reports: Pain Controlled, Tolerating Diet (has tolerated jello), Ambulating, Urinating - Review of Systems General: Reports: No Symptoms HEENT: Reports: No Symptoms Pulmonary: Reports: No Symptoms Cardiovascular: Reports: No Symptoms Gastrointestinal: Reports: Other (gas pains, minimal flatus yet) Genitourinary: Reports: No Symptoms Musculoskeletal: Reports: No Symptoms Skin: Reports: No Symptoms Neurological: Reports: No Symptoms Psychiatric: Reports: No Symptoms - Patient Data Vitals - Most Recent: Last Vital Signs Temp 36.7 C 07/24/21 07:52 Pulse 76 07/24/21 07:52 Resp 18 07/24/21 07:52 BP 108/57 L 07/24/21 07:52 Pulse Ox 95 07/24/21 07:52 Weight - Most Recent: 100.244 kg I&O - Last 24 Hours: Intake & Output 07/23/21 07/24/21 07/24/21 22:59 06:59 14:59 Intake Total 600 Output Total 350 1320 Balance -350 -720 Lab Results Last 24 Hrs: Laboratory Results - last 24 hr 07/23/21 07/24/21 07/24/21 Range/Units 14:47 06:03 06:03 WBC 21.58 H 17.96 H (4.0-11.0) K/uL RBC 4.50 3.92 L (4.30-5.90) M/uL Hgb 12.9 11.1 L (12.0-16.0) g/dL Hct 39.0 34.0 L (36.0-46.0) % MCV 86.7 86.7 (80.0-98.0) fL MCH 28.7 28.3 (27.0-32.0) pg MCHC 33.1 32.6 (31.0-37.0) g/dL RDW Std Deviation 45.7 45.4 (28.0-62.0) fl RDW Coeff of [place] 14 15 (11.0-15.0) % Plt Count 361 352 (150-400) K/uL MPV 9.20 9.00 (7.40-12.00) fL Neut % (Auto) 81.8 H (48.0-80.0) % Lymph % (Auto) 8.6 L (16.0-40.0) % [place] % (Auto) 9.5 (0.0-15.0) % Eos % (Auto) 0.0 (0.0-7.0) % Baso % (Auto) 0.1 (0.0-1.5) % Neut # (Auto) 14.7 H (1.4-5.7) K/uL Lymph # (Auto) 1.6 (0.6-2.4) K/uL [place] # (Auto) 1.7 H (0.0-0.8) K/uL Eos # (Auto) 0.0 (0.0-0.7) K/uL Baso # (Auto) 0.0 (0.0-0.1) K/uL Nucleated RBC % 0.0 0.0 /100WBC Nucleated RBCs # 0 0 K/uL Sodium 139 (136-145) mmol/L Potassium 4.5 (3.5-5.1) mmol/L Chloride 104 (98-107) mmol/L Carbon Dioxide 26.5 (21.0-32.0) mmol/L BUN 9 (7.0-18.0) mg/dL Creatinine 0.7 (0.6-1.0) mg/dL Est Cr Clr Drug Dosing 84.87 mL/min Estimated GFR (MDRD) > 60.0 ml/min Glucose 120 H (74-106) mg/dL Calcium 8.2 L (8.5-10.1) mg/dL Med Orders - Current: Current Medications Diphenhydramine HCl (Diphenhydramine 50 Mg/Ml Sdv) 25 mg IVPUSH Q6H PRN PRN Reason: Itching Diphenhydramine HCl (Diphenhydramine 25 Mg Cap) 25 mg PO Q6H PRN PRN Reason: Itching Hydromorphone HCl (Hydromorphone/Normal Saline 10 Mg/50 Ml [place]ale Fisherman) 0 mg IV ASDIRECTED PRN; Protocol PRN Reason: Abdominal Pain Last Admin: 07/23/21 13:00 Dose: 10 mg Documented by: Lactated Ringer's (Ringers, Lactated) 1,000 mls @ 125 mls/hr IV ASDIRECTED [facility] Last Admin: 07/23/21 23:31 Dose: 125 mls/hr Documented by: Ketorolac Tromethamine (Ketorolac 30 Mg/Ml Sdv) 30 mg IVPUSH Q6H [facility] Stop: 07/28/21 16:00 Last Admin: 07/24/21 05:27 Dose: 30 mg Documented by: Naloxone HCl (Naloxone 0.4 Mg/Ml Sdv) 0.4 mg IVPUSH Q3M PRN PRN Reason: Respiratory Depression Ondansetron HCl (Ondansetron 4 Mg/2 Ml Sdv) 4 mg IVPUSH Q6H PRN PRN Reason: Nausea/Vomiting Ondansetron HCl (Ondansetron 4 Mg/2 Ml Sdv) 4 mg IVPUSH Q6H PRN PRN Reason: Nausea/Vomiting Oxycodone/Acetaminophen (Acetaminophen/Oxycodone 325-5 Mg Tab) 1 tab PO Q4H PRN PRN Reason: Pain (moderate 4-6) Oxycodone/Acetaminophen (Acetaminophen/Oxycodone 325-5 Mg Tab) 2 tab PO Q4H PRN PRN Reason: Pain (moderate 4-6) Estradiol 42.5 Gm (Cream.Appl) 0 each TOP BEDTIME [facility] Last Admin: 07/23/21 21:00 Dose: 1 each Documented by: Promethazine HCl (Promethazine 25 Mg/Ml Sdv) 25 mg IM Q6H PRN PRN Reason: Nausea/Vomiting Simethicone (Simethicone 80 Mg Tab.Chew) 80 mg PO Q4H PRN PRN Reason: Abdominal Pain Discontinued Medications Albuterol (Albuterol 0.083% 2.5 Mg/3 Ml Neb Soln) 2.5 mg NEB ONETIME PRN PRN Reason: Wheezing Bupivacaine HCl (Bupivacaine 0.25% 10 Ml Sdv) Confirm Administered Dose 20 ml .ROUTE .STK-MED ONE Stop: 07/23/21 07:38 Dexamethasone (Dexamethasone 4 Mg/Ml 5 Ml Mdv) Confirm Administered Dose 20 mg .ROUTE .STK-MED ONE Stop: 07/23/21 07:25 Dexmedetomidine HCl (Dexmedetomidine 200 Mcg/2 Ml Sdv) Confirm Administered Dose 200 mcg .ROUTE .STK-MED ONE Stop: 07/23/21 07:25 Droperidol (Droperidol 5 Mg/2 Ml Sdv) 0.625 mg IVPUSH ONETIME PRN PRN Reason: Nausea/Vomiting Ephedrine Sulfate (Ephedrine 50 Mg/Ml Sdv) Confirm Administered Dose 50 mg .ROUTE .STK-MED ONE Stop: 07/23/21 09:15 Ephedrine Sulfate (Ephedrine 50 Mg/Ml Sdv) Confirm Administered Dose 50 mg .ROUTE .STK-MED ONE Stop: 07/23/21 09:15 Ephedrine Sulfate (Ephedrine 50 Mg/Ml Sdv) Confirm Administered Dose 50 mg .ROUTE .STK-MED ONE Stop: 07/23/21 09:17 Esmolol HCl (Esmolol 100 Mg/10 Ml Sdv) Confirm Administered Dose 100 mg .ROUTE .STK-MED ONE Stop: 07/23/21 07:26 Fentanyl (Fentanyl 100 Mcg/2 Ml Sdv) Confirm Administered Dose 100 mcg .ROUTE .STK-MED ONE Stop: 07/23/21 07:26 Fentanyl (Fentanyl 100 Mcg/2 Ml Sdv) 50 mcg IVPUSH Q5M PRN PRN Reason: Pain (mild 1-3) Last Admin: 07/23/21 11:15 Dose: 50 mcg Documented by: Fluorescein Sodium (Fluorescein 5 Ml Vial) Confirm Administered Dose 5 ml .ROUTE .STK-MED ONE Stop: 07/23/21 07:38 Furosemide (Furosemide 40 Mg/4 Ml Vial) Confirm Administered Dose 40 mg .ROUTE .STK-MED ONE Stop: 07/23/21 09:13 Hydromorphone HCl (Hydromorphone 1 Mg/Ml Syringe) 1 mg IVPUSH Q10M PRN PRN Reason: Pain (moderate 4-6) Lactated Ringer's (Ringers, Lactated) 1,000 mls @ 125 mls/hr IV ASDIRECTED [facility]ON[facility] Last Admin: 07/23/21 07:28 Dose: 125 mls/hr Documented by: Sterile Water (Sterile Water For Injection) Confirm Administered Dose 20 mls @ as directed .ROUTE .STK-MED ONE Stop: 07/23/21 07:26 Cefazolin Sodium/Dextrose (Ancef) Confirm Administered Dose 50 mls @ as directed .ROUTE .STK-MED ONE Stop: 07/23/21 08:09 Acetaminophen (Ofirmev 1000 Mg/100 Ml) Confirm Administered Dose 100 mls @ as directed .ROUTE .STK-MED ONE Stop: 07/23/21 09:35 Ketorolac Tromethamine (Ketorolac 30 Mg/Ml Sdv) Confirm Administered Dose 0 mg .ROUTE .STK-MED ONE Stop: 07/23/21 09:24 Lidocaine (Lidocaine 2% 5 Ml Sdv) Confirm Administered Dose 5 ml .ROUTE .STK-MED ONE Stop: 07/23/21 07:25 Methylene Blue (Methylene Blue 50 Mg/10 Ml Ampule) Confirm Administered Dose 50 mg .ROUTE .STK-MED ONE Stop: 07/23/21 07:38 Metoclopramide HCl (Metoclopramide 10 Mg/2 Ml Sdv) 10 mg IVPUSH ONETIME PRN PRN Reason: Nausea/Vomiting Midazolam HCl (Midazolam 1 Mg/Ml 2 Ml Sdv) Confirm Administered Dose 2 mg .ROUTE .STK-MED ONE Stop: 07/23/21 07:26 Morphine Sulfate (Morphine 4 Mg/Ml Vial) 2 mg IVPUSH Q10M PRN PRN Reason: Pain (severe 7-10) Naloxone HCl (Naloxone 0.4 Mg/Ml Sdv) 0.1 mg IVPUSH ASDIRECTED PRN PRN Reason: Respiratory Depression Octyl Cyanoacrylate (Octyl 2-Cyanoacrylate 1 Tube) Confirm Administered Dose 1 applic .ROUTE .STK-MED ONE Stop: 07/23/21 07:38 Ondansetron HCl (Ondansetron 4 Mg/2 Ml Sdv) 4 mg IVPUSH ONETIME PRN PRN Reason: Nausea/Vomiting Ondansetron HCl (Ondansetron 4 Mg/2 Ml Sdv) Confirm Administered Dose 4 mg .ROUTE .STK-MED ONE Stop: 07/23/21 09:24 Propofol (Propofol 200 Mg/20 Ml Sdv) Confirm Administered Dose 200 mg .ROUTE .STK-MED ONE Stop: 07/23/21 07:25 Propofol (Propofol 200 Mg/20 Ml Sdv) Confirm Administered Dose 200 mg .ROUTE .STK-MED ONE Stop: 07/23/21 08:40 Propofol (Propofol 200 Mg/20 Ml Sdv) Confirm Administered Dose 200 mg .ROUTE .STK-MED ONE Stop: 07/23/21 09:57 Rocuronium [place] (Rocuronium [place] 50 Mg/5 Ml Syringe) Confirm Administered Dose 50 mg .ROUTE .STK-MED ONE Stop: 07/23/21 07:25 Rocuronium [place] (Rocuronium [place] 50 Mg/5 Ml Syringe) Confirm Administered Dose 50 mg .ROUTE .STK-MED ONE Stop: 07/23/21 09:12 Scopolamine (Scopolamine 1.5 Mg Transdermal Patch) Confirm Administered Dose 1.5 mg .ROUTE .STK-MED ONE Stop: 07/23/21 07:19 Last Admin: 07/23/21 07:25 Dose: 1.5 mg Documented by: Sugammadex Sodium (Sugammadex Sodium 200 Mg/2 Ml Vial) Confirm Administered Dose 200 mg .ROUTE .STK-MED ONE Stop: 07/23/21 09:24 - Exam Wound/Incisions: Healing Well General: Alert, Oriented Lungs: Clear to Auscultation, Normal Respiratory Effort Cardiovascular: Regular Rate, Regular Rhythm GI/Abdominal Exam: Normal Bowel Sounds, Soft, Non-Tender Extremities: Normal Inspection, Normal Range of Motion, No Pedal Edema, Normal Capillary Refill Sepsis Event Note - Evaluation Sepsis Screening Result: No Definite Risk - Focused Exam Vital Signs: Vital Signs Temp Pulse Resp BP Pulse Ox 07/24/21 07:52 36.7 C 76 18 108/57 L 95 07/24/21 06:32 93 L 07/24/21 05:00 93 L 07/24/21 04:17 93 L 07/24/21 04:00 36.6 C 80 15 118/56 L 93 L 07/24/21 03:34 94 L 07/24/21 02:08 94 L 07/24/21 01:05 93 L 07/24/21 00:49 36.4 C 16 134/75 94 L 07/24/21 00:00 94 L 07/23/21 23:00 93 L 07/23/21 22:00 94 L 07/23/21 21:07 95 98 - Problem List & Annotations (1) Postmenopausal bleeding SNOMED Code(s): 67239624 Code(s): N95.0 - POSTMENOPAUSAL BLEEDING Status: Acute Current Visit: Yes - Problem List Review Problem List Initiated/Reviewed/Updated: Yes - My Orders Last 24 Hours: Active Orders 24 hr Category Date Time Status Patient Status [ADT] Routine ADT 07/23/21 11:03 Active Antiembolic Devices [RC] PER UNIT ROUTINE Care 07/23/21 11:04 Active Communication Order [RC] PER UNIT ROUTINE Care 07/23/21 11:11 Active Notify Provider Intake and Out [RC] ASDIRECTED Care 07/23/21 11:03 Active Notify Provider Vital Signs [RC] ASDIRECTED Care 07/23/21 11:03 Active Oxygen Therapy [RC] ASDIRECTED Care 07/23/21 11:03 Active BLUEPRINT TRACER Record [RC] Q4H Care 07/23/21 11:11 Active Pulse Oximetry [RC] PER UNIT ROUTINE Care 07/23/21 11:05 Active RT Incentive Spirometry [RC] Q2HWA Care 07/23/21 11:03 Active Up With Assistance [RC] PER UNIT ROUTINE Care 07/23/21 11:03 Active Up ad Jade [RC] PER UNIT ROUTINE Care 07/23/21 11:03 Active Vital Signs [RC] PER UNIT ROUTINE Care 07/23/21 11:03 Active Advance Diet Instructions [DIET] Diet 07/23/21 Lunch Active Acetaminophen/oxyCODONE [Percocet 325-5 MG] Med 07/23/21 11:03 Active 1 tab PO Q4H PRN Acetaminophen/oxyCODONE [Percocet 325-5 MG] Med 07/23/21 11:03 Active 2 tab PO Q4H PRN HYDROmorphone/Normal Saline [Dilaudid BLUEPRINT TRACER 10 MG in NS Med 07/23/21 11:10 Active 50 ML] 0 mg IV ASDIRECTED PRN Ketorolac [Toradol] Med 07/23/21 16:00 Active 30 mg IVPUSH Q6H Lactated Ringers [Ringers, Lactated] 1,000 ml Med 07/23/21 11:15 Active IV ASDIRECTED Naloxone [Narcan] Med 07/23/21 11:10 Active 0.4 mg IVPUSH Q3M PRN Ondansetron [Zofran] Med 07/23/21 11:03 Active 4 mg IVPUSH Q6H PRN Ondansetron [Zofran] Med 07/23/21 11:10 Active 4 mg IVPUSH Q6H PRN Patient's Own Medication [Ptom] Med 07/23/21 21:00 Active 0 each TOP BEDTIME Promethazine [Phenergan] Med 07/23/21 11:03 Active 25 mg IM Q6H PRN Simethicone Med 07/23/21 15:58 Active 80 mg PO Q4H PRN diphenhydrAMINE [Benadryl] Med 07/23/21 11:10 Active 25 mg IVPUSH Q6H PRN diphenhydrAMINE [Benadryl] Med 07/23/21 11:10 Active 25 mg PO Q6H PRN Abdominal Binder [OM.PC] Per Unit Routine Oth 07/23/21 11:05 Ordered May Take Own Home Medications [OM.PC] Per Unit Routine Oth 07/23/21 11:05 Ordered Peripheral IV Discontinue [OM.PC] Routine Oth 07/23/21 11:03 Ordered Pulse Oximetry Continuous Monitoring [OM.PC] Routine Oth 07/23/21 11:11 Ordered Sequential Compression Device [OM.PC] Per Unit Routine Oth 07/23/21 11:03 Ordered Resuscitation Status Routine Resus Stat 07/23/21 11:03 Ordered Medication Orders Diphenhydramine HCl (Diphenhydramine 50 Mg/Ml Sdv) 25 mg IVPUSH Q6H PRN PRN Reason: Itching Diphenhydramine HCl (Diphenhydramine 25 Mg Cap) 25 mg PO Q6H PRN PRN Reason: Itching Hydromorphone HCl (Hydromorphone/Normal Saline 10 Mg/50 Ml [place]man) 0 mg IV ASDIRECTED PRN; Protocol PRN Reason: Abdominal Pain Last Admin: 07/23/21 13:00 Dose: 10 mg Documented by: JUAN LUIS Lactated Ringer's (Ringers, Lactated) 1,000 mls @ 125 mls/hr IV ASDIRECTED [facility]ON[facility] Last Admin: 07/23/21 23:31 Dose: 125 mls/hr Documented by: Infusion: 07/23/21 23:31 Dose: 125 mls/hr Documented by: Admin: 07/23/21 17:24 Dose: 125 mls/hr Documented by: Infusion: 07/23/21 17:24 Dose: 125 mls/hr Documented by: Admin: 07/23/21 12:45 Dose: 125 mls/hr Documented by: JUAN LUIS Ketorolac Tromethamine (Ketorolac 30 Mg/Ml Sdv) 30 mg IVPUSH Q6H [facility] Stop: 07/28/21 16:00 Last Admin: 07/24/21 05:27 Dose: 30 mg Documented by: Admin: 07/23/21 23:29 Dose: 30 mg Documented by: Admin: 07/23/21 17:30 Dose: 30 mg Documented by: NIHARIKA Naloxone HCl (Naloxone 0.4 Mg/Ml Sdv) 0.4 mg IVPUSH Q3M PRN PRN Reason: Respiratory Depression Ondansetron HCl (Ondansetron 4 Mg/2 Ml Sdv) 4 mg IVPUSH Q6H PRN PRN Reason: Nausea/Vomiting Ondansetron HCl (Ondansetron 4 Mg/2 Ml Sdv) 4 mg IVPUSH Q6H PRN PRN Reason: Nausea/Vomiting Oxycodone/Acetaminophen (Acetaminophen/Oxycodone 325-5 Mg Tab) 1 tab PO Q4H PRN PRN Reason: Pain (moderate 4-6) Oxycodone/Acetaminophen (Acetaminophen/Oxycodone 325-5 Mg Tab) 2 tab PO Q4H PRN PRN Reason: Pain (moderate 4-6) Estradiol 42.5 Gm (Cream.Appl) 0 each TOP BEDTIME [facility] Last Admin: 07/23/21 21:00 Dose: 1 each Documented by: ALINE Promethazine HCl (Promethazine 25 Mg/Ml Sdv) 25 mg IM Q6H PRN PRN Reason: Nausea/Vomiting Simethicone (Simethicone 80 Mg Tab.Chew) 80 mg PO Q4H PRN PRN Reason: Abdominal Pain - Assessment Assessment (Free Text/Narrative):: POD #1 after Total abdominal hysterectomy, bilateral salpingoophorectomy. Stable, tolerating clears, pain well controlled. - Plan Plan (Free Text/Narrative):: Continue postoperative care, ambulate, may shower, oral pain medications.
[2021-07-24] MEDS: Simethicone 80 MG Tab.Chew PO PRN ×4 (09:16→22:18)
[2021-07-24] MEDS: ESTRADIOL APPL TOP SCH (22:17)
--- NOTE | 2021-07-25 08:29 | PCM.SURGPN ---
- General Info Date of Service: 07/25/21 Date of Surgery/Procedure: 07/23/21 POD#: 2 Post-Op Diagnosis: postmenopausal bleeding Functional Status: Reports: Pain Controlled, Tolerating Diet, Ambulating - Review of Systems General: Reports: No Symptoms HEENT: Reports: No Symptoms Pulmonary: Reports: No Symptoms Cardiovascular: Reports: No Symptoms Gastrointestinal: Reports: No Symptoms Genitourinary: Reports: No Symptoms Musculoskeletal: Reports: No Symptoms Skin: Reports: No Symptoms Neurological: Reports: No Symptoms Psychiatric: Reports: No Symptoms - Patient Data Vitals - Most Recent: Last Vital Signs Temp 36.4 C 07/25/21 07:35 Pulse 72 07/25/21 07:35 Resp 16 07/25/21 07:35 BP 112/58 L 07/25/21 07:35 Pulse Ox 94 L 07/25/21 07:35 Weight - Most Recent: 100.244 kg Med Orders - Current: Current Medications Diphenhydramine HCl (Diphenhydramine 50 Mg/Ml Sdv) 25 mg IVPUSH Q6H PRN PRN Reason: Itching Diphenhydramine HCl (Diphenhydramine 25 Mg Cap) 25 mg PO Q6H PRN PRN Reason: Itching Lactated Ringer's (Ringers, Lactated) 1,000 mls @ 125 mls/hr IV ASDIRECTED [facility] Last Admin: 07/23/21 23:31 Dose: 125 mls/hr Documented by: Ketorolac Tromethamine (Ketorolac 30 Mg/Ml Sdv) 30 mg IVPUSH Q6H [facility] Stop: 07/28/21 16:00 Last Admin: 07/24/21 22:18 Dose: 30 mg Documented by: Naloxone HCl (Naloxone 0.4 Mg/Ml Sdv) 0.4 mg IVPUSH Q3M PRN PRN Reason: Respiratory Depression Ondansetron HCl (Ondansetron 4 Mg/2 Ml Sdv) 4 mg IVPUSH Q6H PRN PRN Reason: Nausea/Vomiting Ondansetron HCl (Ondansetron 4 Mg/2 Ml Sdv) 4 mg IVPUSH Q6H PRN PRN Reason: Nausea/Vomiting Oxycodone/Acetaminophen (Acetaminophen/Oxycodone 325-5 Mg Tab) 1 tab PO Q4H PRN PRN Reason: Pain (moderate 4-6) Oxycodone/Acetaminophen (Acetaminophen/Oxycodone 325-5 Mg Tab) 2 tab PO Q4H PRN PRN Reason: Pain (moderate 4-6) Last Admin: 07/25/21 07:42 Dose: 2 tab Documented by: Estradiol 42.5 Gm (Cream.Appl) 0 each TOP BEDTIME [facility] Last Admin: 07/24/21 22:17 Dose: 1 each Documented by: Promethazine HCl (Promethazine 25 Mg/Ml Sdv) 25 mg IM Q6H PRN PRN Reason: Nausea/Vomiting Simethicone (Simethicone 80 Mg Tab.Chew) 80 mg PO Q4H PRN PRN Reason: Abdominal Pain Last Admin: 07/24/21 22:18 Dose: 80 mg Documented by: Discontinued Medications Albuterol (Albuterol 0.083% 2.5 Mg/3 Ml Neb Soln) 2.5 mg NEB ONETIME PRN PRN Reason: Wheezing Bupivacaine HCl (Bupivacaine 0.25% 10 Ml Sdv) Confirm Administered Dose 20 ml .ROUTE .STK-MED ONE Stop: 07/23/21 07:38 Dexamethasone (Dexamethasone 4 Mg/Ml 5 Ml Mdv) Confirm Administered Dose 20 mg .ROUTE .STK-MED ONE Stop: 07/23/21 07:25 Dexmedetomidine HCl (Dexmedetomidine 200 Mcg/2 Ml Sdv) Confirm Administered Dose 200 mcg .ROUTE .STK-MED ONE Stop: 07/23/21 07:25 Droperidol (Droperidol 5 Mg/2 Ml Sdv) 0.625 mg IVPUSH ONETIME PRN PRN Reason: Nausea/Vomiting Ephedrine Sulfate (Ephedrine 50 Mg/Ml Sdv) Confirm Administered Dose 50 mg .ROUTE .STK-MED ONE Stop: 07/23/21 09:15 Ephedrine Sulfate (Ephedrine 50 Mg/Ml Sdv) Confirm Administered Dose 50 mg .ROUTE .STK-MED ONE Stop: 07/23/21 09:15 Ephedrine Sulfate (Ephedrine 50 Mg/Ml Sdv) Confirm Administered Dose 50 mg .ROUTE .STK-MED ONE Stop: 07/23/21 09:17 Esmolol HCl (Esmolol 100 Mg/10 Ml Sdv) Confirm Administered Dose 100 mg .ROUTE .STK-MED ONE Stop: 07/23/21 07:26 Fentanyl (Fentanyl 100 Mcg/2 Ml Sdv) Confirm Administered Dose 100 mcg .ROUTE .STK-MED ONE Stop: 07/23/21 07:26 Fentanyl (Fentanyl 100 Mcg/2 Ml Sdv) 50 mcg IVPUSH Q5M PRN PRN Reason: Pain (mild 1-3) Last Admin: 07/23/21 11:15 Dose: 50 mcg Documented by: Fluorescein Sodium (Fluorescein 5 Ml Vial) Confirm Administered Dose 5 ml .ROUTE .STK-MED ONE Stop: 07/23/21 07:38 Furosemide (Furosemide 40 Mg/4 Ml Vial) Confirm Administered Dose 40 mg .ROUTE .STK-MED ONE Stop: 07/23/21 09:13 Hydromorphone HCl (Hydromorphone 1 Mg/Ml Syringe) 1 mg IVPUSH Q10M PRN PRN Reason: Pain (moderate 4-6) Hydromorphone HCl (Hydromorphone/Normal Saline 10 Mg/50 Ml Life Sciences Director) 0 mg IV ASDIRECTED PRN; Protocol PRN Reason: Abdominal Pain Last Admin: 07/23/21 13:00 Dose: 10 mg Documented by: Lactated Ringer's (Ringers, Lactated) 1,000 mls @ 125 mls/hr IV ASDIRECTED [facility] Last Admin: 07/23/21 07:28 Dose: 125 mls/hr Documented by: Sterile Water (Sterile Water For Injection) Confirm Administered Dose 20 mls @ as directed .ROUTE .STK-MED ONE Stop: 07/23/21 07:26 Cefazolin Sodium/Dextrose (Ancef) Confirm Administered Dose 50 mls @ as directed .ROUTE .STK-MED ONE Stop: 07/23/21 08:09 Acetaminophen (Ofirmev 1000 Mg/100 Ml) Confirm Administered Dose 100 mls @ as directed .ROUTE .STK-MED ONE Stop: 07/23/21 09:35 Ketorolac Tromethamine (Ketorolac 30 Mg/Ml Sdv) Confirm Administered Dose 0 mg .ROUTE .STK-MED ONE Stop: 07/23/21 09:24 Lidocaine (Lidocaine 2% 5 Ml Sdv) Confirm Administered Dose 5 ml .ROUTE .STK-MED ONE Stop: 07/23/21 07:25 Methylene Blue (Methylene Blue 50 Mg/10 Ml Ampule) Confirm Administered Dose 50 mg .ROUTE .STK-MED ONE Stop: 07/23/21 07:38 Metoclopramide HCl (Metoclopramide 10 Mg/2 Ml Sdv) 10 mg IVPUSH ONETIME PRN PRN Reason: Nausea/Vomiting Midazolam HCl (Midazolam 1 Mg/Ml 2 Ml Sdv) Confirm Administered Dose 2 mg .ROUTE .STK-MED ONE Stop: 07/23/21 07:26 Morphine Sulfate (Morphine 4 Mg/Ml Vial) 2 mg IVPUSH Q10M PRN PRN Reason: Pain (severe 7-10) Naloxone HCl (Naloxone 0.4 Mg/Ml Sdv) 0.1 mg IVPUSH ASDIRECTED PRN PRN Reason: Respiratory Depression Octyl Cyanoacrylate (Octyl 2-Cyanoacrylate 1 Tube) Confirm Administered Dose 1 applic .ROUTE .STK-MED ONE Stop: 07/23/21 07:38 Ondansetron HCl (Ondansetron 4 Mg/2 Ml Sdv) 4 mg IVPUSH ONETIME PRN PRN Reason: Nausea/Vomiting Ondansetron HCl (Ondansetron 4 Mg/2 Ml Sdv) Confirm Administered Dose 4 mg .ROUTE .STK-MED ONE Stop: 07/23/21 09:24 Propofol (Propofol 200 Mg/20 Ml Sdv) Confirm Administered Dose 200 mg .ROUTE .STK-MED ONE Stop: 07/23/21 07:25 Propofol (Propofol 200 Mg/20 Ml Sdv) Confirm Administered Dose 200 mg .ROUTE .STK-MED ONE Stop: 07/23/21 08:40 Propofol (Propofol 200 Mg/20 Ml Sdv) Confirm Administered Dose 200 mg .ROUTE .STK-MED ONE Stop: 07/23/21 09:57 Rocuronium [place] (Rocuronium [place] 50 Mg/5 Ml Syringe) Confirm Administered Dose 50 mg .ROUTE .STK-MED ONE Stop: 07/23/21 07:25 Rocuronium [place] (Rocuronium [place] 50 Mg/5 Ml Syringe) Confirm Administered Dose 50 mg .ROUTE .STK-MED ONE Stop: 07/23/21 09:12 Scopolamine (Scopolamine 1.5 Mg Transdermal Patch) Confirm Administered Dose 1.5 mg .ROUTE .STK-MED ONE Stop: 07/23/21 07:19 Last Admin: 07/23/21 07:25 Dose: 1.5 mg Documented by: Sugammadex Sodium (Sugammadex Sodium 200 Mg/2 Ml Vial) Confirm Administered Dose 200 mg .ROUTE .STK-MED ONE Stop: 07/23/21 09:24 - Exam Wound/Incisions: Healing Well General: Alert, Oriented Lungs: Clear to Auscultation, Normal Respiratory Effort Cardiovascular: Regular Rate, Regular Rhythm GI/Abdominal Exam: Normal Bowel Sounds, Soft, Non-Tender, No Distention, No Mass Extremities: Normal Inspection, Non-Tender, No Pedal Edema Skin: Warm, Dry, Intact Neurological: No New Focal Deficit Psy/Mental Status: Alert, Normal Affect, Normal Mood Sepsis Event Note - Evaluation Sepsis Screening Result: No Definite Risk - Focused Exam Vital Signs: Vital Signs Temp Pulse Resp BP Pulse Ox 07/25/21 07:35 36.4 C 72 16 112/58 L 94 L 07/25/21 04:57 36.8 C 77 16 113/56 L 95 - Problem List & Annotations (1) Postmenopausal bleeding SNOMED Code(s): 27823402 Code(s): N95.0 - POSTMENOPAUSAL BLEEDING Status: Acute Current Visit: Yes - Problem List Review Problem List Initiated/Reviewed/Updated: Yes - My Orders Last 24 Hours: Active Orders 24 hr Category Date Time Status Ready for Discharge [RC] PER UNIT ROUTINE Care 07/25/21 08:19 Ordered Regular Diet [DIET] Diet 07/24/21 Lunch Active Medication Orders Diphenhydramine HCl (Diphenhydramine 50 Mg/Ml Sdv) 25 mg IVPUSH Q6H PRN PRN Reason: Itching Diphenhydramine HCl (Diphenhydramine 25 Mg Cap) 25 mg PO Q6H PRN PRN Reason: Itching Lactated Ringer's (Ringers, Lactated) 1,000 mls @ 125 mls/hr IV ASDIRECTED JONY Last Admin: 07/23/21 23:31 Dose: 125 mls/hr Documented by: Infusion: 07/23/21 23:31 Dose: 125 mls/hr Documented by: Admin: 07/23/21 17:24 Dose: 125 mls/hr Documented by: Infusion: 07/23/21 17:24 Dose: 125 mls/hr Documented by: Admin: 07/23/21 12:45 Dose: 125 mls/hr Documented by: JUAN LUIS Ketorolac Tromethamine (Ketorolac 30 Mg/Ml Sdv) 30 mg IVPUSH Q6H [facility] Stop: 07/28/21 16:00 Last Admin: 07/24/21 22:18 Dose: 30 mg Documented by: Admin: 07/24/21 17:36 Dose: 30 mg Documented by: Admin: 07/24/21 11:32 Dose: 30 mg Documented by: Admin: 07/24/21 05:27 Dose: 30 mg Documented by: Admin: 07/23/21 23:29 Dose: 30 mg Documented by: Admin: 07/23/21 17:30 Dose: 30 mg Documented by: NIHARIKA Naloxone HCl (Naloxone 0.4 Mg/Ml Sdv) 0.4 mg IVPUSH Q3M PRN PRN Reason: Respiratory Depression Ondansetron HCl (Ondansetron 4 Mg/2 Ml Sdv) 4 mg IVPUSH Q6H PRN PRN Reason: Nausea/Vomiting Ondansetron HCl (Ondansetron 4 Mg/2 Ml Sdv) 4 mg IVPUSH Q6H PRN PRN Reason: Nausea/Vomiting Oxycodone/Acetaminophen (Acetaminophen/Oxycodone 325-5 Mg Tab) 1 tab PO Q4H PRN PRN Reason: Pain (moderate 4-6) Oxycodone/Acetaminophen (Acetaminophen/Oxycodone 325-5 Mg Tab) 2 tab PO Q4H PRN PRN Reason: Pain (moderate 4-6) Last Admin: 07/25/21 07:42 Dose: 2 tab Documented by: LIZET Estradiol 42.5 Gm (Cream.Appl) 0 each TOP BEDTIME [facility] Last Admin: 07/24/21 22:17 Dose: 1 each Documented by: Admin: 07/23/21 21:00 Dose: 1 each Documented by: ALINE Promethazine HCl (Promethazine 25 Mg/Ml Sdv) 25 mg IM Q6H PRN PRN Reason: Nausea/Vomiting Simethicone (Simethicone 80 Mg Tab.Chew) 80 mg PO Q4H PRN PRN Reason: Abdominal Pain Last Admin: 07/24/21 22:18 Dose: 80 mg Documented by: Admin: 07/24/21 17:39 Dose: 80 mg Documented by: Admin: 07/24/21 13:35 Dose: 80 mg Documented by: Admin: 07/24/21 09:16 Dose: 80 mg Documented by: QUITA - Assessment Assessment (Free Text/Narrative):: POD#2 after total abdominal hysterectomy. Stable, pain is well controlled, tolerating diet, ambulating and would like to go home. - Plan Plan (Free Text/Narrative):: Discharge instructions reviewed.
== END 2021-07-25 09:48 | disposition home or self-care (01) | DRG 513 ==
LOC: MW.SDS 06:40 → MW.OB 11:03
PROVIDERS: ADMIT Obstetrics & Gynecology; ATTEND Obstetrics & Gynecology
PROC: 0UT94ZZ Resection of Uterus, Percutaneous Endoscopic Approach (ICD-10-PCS; principal; 2021-07-23)
PROC: 0UT74ZZ Resection of Bilateral Fallopian Tubes, Percutaneous Endoscopic Approach (ICD-10-PCS; 2021-07-23)
PROC: 0UT24ZZ Resection of Bilateral Ovaries, Percutaneous Endoscopic Approach (ICD-10-PCS; 2021-07-23)
DX: N95.0 Postmenopausal bleeding (principal); E66.9 Obesity, unspecified; F32.A Depression, unspecified; Z87.442 Personal history of urinary calculi; Z90.49 Acquired absence of other specified parts of digestive tract; Z68.37 Body mass index [BMI] 37.0-37.9, adult
CPT/HCPCS: 00840; 36415; 80048; 84703; 85014; 85018; 85025; 85027; 86850; 86900; 86901; A9270-GY; J0131; J0690; J1100; J1170; J1885; J1940; J2250; J2405; J2704; J3010; J3490; J7030; J7120